=== PATIENT | female | born 1970 | race Caucasian/White ===

== ENCOUNTER 2023-01-15 12:43 | Emergency (ER) | payer OTHER, SELFPAY ==
[2023-01-15] VITALS (15 sets, daily range): BP systolic 124–192; BP diastolic 69–82; PULSE 81–110; RESP 16–18; TEMP 36.7; O2SAT 97–100
--- NOTE | ~2023-01-15 | XR_ITS ---
EXAMINATION: XR lumbar spine 2-3V DATE: 01/15/2023 14:48 INDICATION: Low back pain TECHNIQUE: Anteroposterior and lateral views of the lumbar spine, and cone-down lateral view of the l umbosacral junction were obtained. COMPARISON: None. FINDINGS: Bone alignment is normal. There is no fracture. The vertebral body heights and intervertebr al disc spaces are normal. IMPRESSION: 1. No acute osseous abnormality. Reviewed, dictated and finalized at location L.
--- NOTE | 2023-01-15 15:03 | ED.BACK ---
HPI - Back Pain/Injury General Chief Complaint: Back Pain/Injury Stated Complaint: Back injury Time Seen by Provider: 01/15/23 13:53 Source: patient and RN notes reviewed Mode of arrival: ambulatory Limitations: no limitations History of Present Illness HPI Narrative: This is a 52 year old female who presents for evaluation of back pain. She states she was at work when a heavy box of chicken fell onto her lower back pain. She reports at the time she was dizzy but she was not hit in the head. She reports her back pain is mild and she rates it 4/10. She denies nausea, vomiting. She has not taken anything for pain. She denies radiating pain, leg weakness or numbness. Related Data Allergies Allergy/AdvReac Type Severity Reaction Status Date / Time No Known Allergies Allergy Verified 01/15/23 13:47 Review of Systems Review of Systems: All systems reviewed & are unremarkable except as noted in HPI and below PMFSH Past Medical History Medical History (Updated 01/15/23 @ 15:08 by Martina Han MD) Patient denies medical problems Surgical History Surgical History (Updated 01/15/23 @ 15:06 by Martina Han MD) No pertinent past surgical history Social History Social History (Updated 01/15/23 @ 15:06 by Martina Han MD) Smoking status: Never smoker Exam Const: General: no acute distress and alert Nutritional Appearance: well nourished Orientation/consciousness: patient oriented x3 HENMT: Head: normal to inspection Eyes: EOM: EOMs intact bilaterally Chest: Chest palpation & inspection: normal inspection of the chest Resp: Effort & Inspection: normal respiratory effort Auscultation: clear to auscultation bilaterally Cardio: Rate: regular rate Rhythm: regular rhythm Heart sounds: no murmurs GI: GI Palp: Yes Soft to palpation, No Tenderness to palpation present (GI), No Guarding due to palpation present (GI) and No Rigid due to palpation Auscultation: normal bowel sounds Back/Spine/Pelvis: Thoracic/Lumbar Spine: paraspinal muscle tenderness, No thoracic spinal tenderness and No lumbar spinal tenderness Skin: Rashes: no rashes Other: small abrasion to left lower back Neuro: General: patient oriented x3, moves all extremities and CN's II-XI intact bilaterally Extrem: General: normal to inspection Psych: Mental Status: mental status grossly normal Affect: normal affect Attitude: cooperative Course Reevaluation(s) Reevaluation #1: Patient declined pain medications. I discussed xray is normal. She states she would like off for 3 days. Date: 01/15/23 Time: 15:07 Vital Signs Vital signs: Vital Signs Temperature 98.1 F 01/15/23 12:48 Pulse Rate 110 H 01/15/23 12:48 Respiratory Rate 18 01/15/23 12:48 Blood Pressure 192/69 H 01/15/23 12:48 Pulse Oximetry 100 01/15/23 12:48 Oxygen Delivery Room Air 01/15/23 12:48 Temperature 98.1 F 01/15/23 12:48 Pulse Rate 85 01/15/23 15:41 Respiratory Rate 16 01/15/23 15:41 Blood Pressure 137/75 01/15/23 15:41 Pulse Oximetry 100 01/15/23 15:41 Oxygen Delivery Room Air 01/15/23 12:48 MDM - Back Pain/Injury Differential Diagnosis Differential diagnosis: Likely other (back contusion, lumbar fracture, abrasion, lumbar strain) Imaging Data Radiologist's impression: ITS Impressions Lumbar Spine X-Ray 01/15/23 14:51 IMPRESSION: 1. No acute osseous abnormality. Discharge Plan Discharge Clinical Impression: Contusion of back Patient Disposition: Home, Self-Care Condition: Stable Instructions: Antibiotic Form, Back Pain (ED) Patient Language: Bangladeshi Prescriptions: New ibuprofen 600 mg tablet 600 mg PO TID PRN (Reason: pain) Qty: 14 0RF Follow-up/Referrals: UNKNOWN,DOCTOR [Primary Care Provider] - Stand Alone Forms: Work/School Release IP
== END 2023-01-15 15:48 | disposition home or self-care (01) ==
PROVIDERS: Emergency Provider General Practice
DX: S30.0XXA Contusion of lower back and pelvis, initial encounter (principal); W20.8XXA Other cause of strike by thrown, projected or falling object, initial encounter
CPT/HCPCS: 72100; 99283

== ENCOUNTER → 2023-07-27 08:46 | Outpatient (CLI) | payer OTHER, SELFPAY ==
--- NOTE | ~2023-07-27 | US_ITS ---
EXAMINATION: US pelvic complete w TV DATE: 07/27/2023 09:11 INDICATION: Right lower quadrant abdominal pain. Perimenopausal. TECHNIQUE: Multiple transabdominal and transvaginal sonographic images of the pelvis were obtained. COMPARISON: None. FINDINGS: TRANSABDOMINAL ULTRASOUND: The uterus measures 10.2 x 6.2 x 7.0 cm. There is no free fluid in the pelvis. TRANSVAGINAL ULTRASOUND: The endometrial complex measures 6 mm in thickness. The right ovary is not visualized. The left ovary is not visualized. IMPRESSION: 1. No etiology for the patient's symptoms. Ovaries not visualized. Reviewed, dictated and finalized at location E.
== END ==
PROVIDERS: PCP Nurse Practitioner Family; Visit Provider Physician Assistant
DX: R10.31 Right lower quadrant pain (principal)
CPT/HCPCS: 76830; 76856